=== PATIENT | male | born 1945 | race Caucasian/White ===

== ENCOUNTER 2017-02-28 04:19 | Emergency (ER) | payer OTHER, MEDICARE ==
[~2017-02-28] VITALS: Ht 167.6 cm; Wt 70.5 kg
[~2017-02-28 04:19] MED LIST: ASPIR-LOW81 MG PO; AUGMENTIN875 MG PO; CALCIUM500 M4 PO; DOCUSATE SODIU100 MG PO; FLONASE16 G1 BOTH NARES; FLUTICASONE PRO16 GM BOTH NARES; LORTAB 5-325 M1 EACH PO; NOHOMEMEDS; PERCOCET 5/31 TABLET PO; TAMSULOSIN HCL0.4 MG PO; TRAMADOL HCL50 MG PO
[2017-02-28 05:01] LABS: BASOPHIL (%) 0.1 % (0-1); EOSINOPHIL (%) 0.3 % (0-5); HEMATOCRIT 42.8 % (38.0-50.0); HEMOGLOBIN 15.1 G/DL (12.5-16.6); IMMATURE GRANULOCYTE (%) 0.4 % (0.0-0.7); LYMPHOCYTE (%) 6.5 % (15-42); LYMPHOCYTE COUNT 0.5 K/uL (1.0-2.8); MCH 30.9 PG (29.0-34.0); MCHC 35.3 G/DL (30.0-36.0); MCV 87.5 FL (86-99); MONOCYTE (%) 6.4 % (3-12); MONOCYTE COUNT 0.5 K/uL (0-0.8); NEUTROPHIL (%) 86.3 % (45-76); NEUTROPHIL COUNT 6.7 K/uL (1.8-6.4); PLATELET COUNT 152 K/uL (156-360); RBC DIS.WIDTH-CV 11.8 % (11.8-14.6); RBC DIS.WIDTH-SD 37.7 % (39-53); RED BLOOD COUNT 4.89 M/uL (4.00-5.50); WHITE BLOOD COUNT 7.8 K/uL (4.1-10.2)
[2017-02-28 05:08] LABS: CHLORIDE 104 mEq/L (99-109); POTASSIUM 3.9 mEq/L (3.7-5.4); SODIUM 135 mEq/L (136-147)
[2017-02-28 05:10] LABS: GLUCOSE 191 mg/dL (70-99)
[2017-02-28 05:14] LABS: CREATININE 1.1 mg/dL (0.6-1.3); GFR ESTIMATE (CALCULATED) > 59 mL/min/ (58.99-99999)
[2017-02-28 05:15] LABS: UREA NITROGEN (BUN) 17 mg/dL (9-23)
[2017-02-28 06:07] LABS: ALBUMIN 4.2 g/dL (3.2-4.8)
[2017-02-28 06:10] LABS: TOTAL PROTEIN 7.1 g/dL (6.4-8.3)
[2017-02-28 06:12] LABS: TOTAL BILIRUBIN 0.8 mg/dL (0.0-1.0)
[2017-02-28 06:13] LABS: ALKALINE PHOSPHATASE 51 IU/L (3-129)
[2017-02-28 06:15] LABS: AST (GOT) 24 IU/L (2-34); DIRECT BILIRUBIN 0.3 mg/dL (0.0-0.3)
[2017-02-28 06:16] LABS: ALT (GPT) 15 IU/L (3-49); LIPASE 43 U/L (1.0-51.0)
[2017-02-28 06:26] LABS: APPEARANCE CLOUDY ((CLEAR)); BILIRUBIN SMALL; BLOOD NEGATIVE; GLUCOSE (STRIP) NEGATIVE; KETONES 20; LEUKOCYTES NEGATIVE; NITRITE NEGATIVE; PROTEIN (STRIP) 30; SPECIFIC GRAVITY 1.036 (1.000-1.030)
[2017-02-28 06:29] LABS: COLOR YELLOW ((YELLOW))
[2017-02-28 06:56] LABS: BACTERIA RARE /HPF; EPITHELIAL CELLS 1+ /HPF; MUCUS 3+ /LPF; RED BLOOD CELLS NONE SEEN /HPF (0-5); UCUL ADDED? YES
[2017-02-28] MEDS ORDERED: TAMIFLU75 MG PO (07:25)
[2017-02-28] MEDS ORDERED: AUGMENTIN875 MG PO (07:25)
[2017-02-28 07:52] VITALS: BP 130/60
== END 2017-02-28 08:07 | disposition home or self-care (01) ==
LOC: EME 04:19
PROVIDERS: Emergency Medicine
DX: J10.00 Influenza due to other identified influenza virus with unspecified type of pneumonia (principal); E86.0 Dehydration; N40.0 Benign prostatic hyperplasia without lower urinary tract symptoms; Z88.2 Allergy status to sulfonamides
CPT/HCPCS: 71046; 80048; 80076; 81003; 83605; 83690; 85025; 87086; 87502; 99281; 99285; J0696; J7030